=== PATIENT | male | born 1965 | race Native Hawaiian/Other Pacific Islander ===

== ENCOUNTER 2020-12-13 10:22 | Outpatient (CLI) | payer BC, OTHER | END 2020-12-13 19:38 | disposition home or self-care (01) | LOC: INF 10:22 | PROVIDERS: ATTEND Internal Medicine | DX: Z23 Encounter for immunization (principal) ==

== ENCOUNTER 2021-01-10 07:31 | Outpatient (CLI) | payer BC, OTHER | END 2021-01-10 19:18 | disposition home or self-care (01) | LOC: INF 07:31 | PROVIDERS: ATTEND Internal Medicine | DX: Z23 Encounter for immunization (principal) | CPT/HCPCS: 96372 ==

== ENCOUNTER 2021-07-07 14:02 | Outpatient (CLI) | payer BC | END 2021-07-07 19:15 | disposition home or self-care (01) | LOC: MRI 14:02 | PROVIDERS: ATTEND Internal Medicine | DX: M25.511 Pain in right shoulder (principal); S49.91XA Unspecified injury of right shoulder and upper arm, initial encounter ==